=== PATIENT | male | born 2000 | race Caucasian/White ===

== ENCOUNTER 2023-05-26 21:08 | Emergency (ER) | payer MEDICAID, OTHER ==
[~2023-05-26] VITALS: Ht 157.5 cm; Wt 74.4 kg
[2023-05-26 21:10] VITALS: BP 125/89; PULSE 74; RESP 17; TEMP 97.6; O2SAT 98
--- NOTE | 2023-05-26 21:13 | NUR ---
TO LOBBY A/W BED AMBULATORY
--- NOTE | 2023-05-26 22:45 | NUR ---
[facility]IST [facility] AT BEDSIDE EXAMINING PT IN BED 4
[2023-05-26] MEDS ORDERED: BACITRACIN OINT 500 UNITS/GM PKT TP ONE (22:50)
[2023-05-26] MEDS ORDERED: LIDOCAINE MPF 1% 10 MG/ML VIAL INJ ONE (22:50)
[2023-05-27] MEDS ORDERED: CEPH-588 PO (00:11)
--- NOTE | 2023-05-27 00:16 | NUR ---
Patient discharged with v/s stable. Written and verbal after care instructions given and explained. Patient alert, oriented and verbalized understanding of instructions. Ambulatory with steady gait. All questions addressed prior to discharge. ID band removed. Patient advised to follow up with PMD. Rx of KELFEX given. Patient educated on indication of medication including possible reaction and side effects. Opportunity to ask questions provided and answered.
== END 2023-05-27 00:16 | disposition home or self-care (01) ==
LOC: MED 21:08
DX: S61.512A Laceration without foreign body of left wrist, initial encounter (principal); W27.0XXA Contact with workbench tool, initial encounter; Y93.89 Activity, other specified; Y92.89 Other specified places as the place of occurrence of the external cause; Y99.8 Other external cause status
CPT/HCPCS: 12002; 90471; 90715; 99283; J2001